=== PATIENT | male | born 1985 | race Two or more races ===

== ENCOUNTER → 2024-09-18 | Outpatient (CLI) | payer OTHER, SELFPAY ==
[2024-09-18 17:11] LABS: Free T3 5.5 pg/mL (2.3-4.2); Free T4 (Free Thyroxine) 0.86 ng/dL (0.89-1.76)
[2024-09-30 06:44] LABS: DHEA Sulfate* 469 mcg/dL (70-495); T3, Reverse, LC/MS/MS* 13 ng/dL (8-25); Testosterone, Free,Dialysis 237.2 pg/mL (35.0-155.0); Testosterone, Total, Dialysis 1202 ng/dL (250-1100)
== END | disposition home or self-care (01) ==
LOC: COPL 15:45
PROVIDERS: PCP Family Medicine; Referring Provider Family Medicine; Visit Provider Family Medicine
DX: E03.9 Hypothyroidism, unspecified (principal); E29.1 Testicular hypofunction
CPT/HCPCS: 36415; 82627; 84402; 84403; 84439; 84481; 84482

== ENCOUNTER → 2024-10-13 | Outpatient (CLI) | payer OTHER, SELFPAY ==
--- NOTE | 2024-10-13 13:50 | XR_ITS ---
Examination: PA lateral chest 2 views TECHNIQUE: Upright PA lateral chest 2 views Exam date and time: October 13, 2024 1410 hours INDICATIONS: Shortness of breath wheezing beginning several months ago. FINDINGS: Normal heart size Lungs are clear. The osseous structures are intact IMPRESSION: No active disease
== END | disposition home or self-care (01) ==
PROVIDERS: PCP Family Medicine; Referring Provider Family Medicine; Visit Provider Family Medicine
DX: R06.02 Shortness of breath (principal); R06.2 Wheezing
CPT/HCPCS: 71046

== ENCOUNTER 2024-12-04 19:39 | Emergency (ER) | payer OTHER, SELFPAY ==
[2024-12-04 19:40] VITALS: BMI 32.6
[2024-12-04 21:02] VITALS: BP 163/89; PULSE 96; RESP 18; TEMP 36.8; O2SAT 95
[2024-12-04] MEDS: DEXAMETHASONE SOD PHOS INJ 10 MG/ML VIAL PO (21:34)
[2024-12-04 23:32] VITALS: BP 112/67; PULSE 87; RESP 18; TEMP 37.3; O2SAT 99
--- NOTE | 2024-12-05 04:18 | EDNOTE_ITS ---
Upper Respiratory Inf. RME/HPI General Chief Complaint: Dental/Oral/Throat Stated Complaint: Feels swelling in throat and tongue x 3 weeks Time Seen by Provider: 12/04/24 21:17 Arrival date/time: 12/04/24 19:39 39M with history of rosacea presents to ED for several weeks of facial numbness, as well as swelling in throat and tongue, that is worse at night. This has been happening intermittently for the past few years, but worse recently. Patient also works underground doing construction. Limitations: no limitations Related Data Home Medications ?Medication ?Instructions ?Recorded ?Confirmed No Known Home Medications 06/03/1910/21 Allergies Allergy/AdvReac Type Severity Reaction Status Date / Time No Known Allergies Allergy Verified 06/11/19 21:15 Review of Systems Review of Systems Systems Reviewed: All systems reviewed, normal except as documented Constitutional Constitutional: Reports system reviewed and no additional complaints, except as documented, Denies fever(s) and Denies headache(s) ENT Ears, Nose, Mouth, and Throat: Reports as per HPI, Denies disequilibrium, Denies headache(s) and Reports throat swelling Cardiovascular Cardiovascular: Reports system reviewed and no additional complaints, except as documented, Denies chest pain and Denies dyspnea Respiratory Respiratory: Reports system reviewed and no additional complaints, except as documented, Denies cough and Denies dyspnea Gastrointestinal Gastrointestinal: Reports system reviewed and no additional complaints, except as documented, Denies abdominal pain, Denies nausea and Denies vomiting Musculoskeletal Musculoskeletal: Reports numbness Neurologic Neurologic: Reports system reviewed and no additional complaints, except as documented, Reports as per HPI, Denies confusion, Denies disequilibrium, Denies headache(s) and Reports numbness Psychiatric Psychiatric: Denies confusion Allergic/Immunologic Allergic/Immunologic: Reports throat swelling Past Medical History Past Medical History CARDIAC: Negative Congestive Heart Failure RESPIRATORY: Negative Chronic Obstructive Pulmonary Disease (COPD) GENITOURINARY: Negative Renal Disease ENDOCRINE: Negative Diabetes Mellitus Type 1 or Diabetes Mellitus Type 2 OTHER HISTORY: Negative Organ Transplant Surgical History SURGICAL: Negative Organ Transplant Social History SMOKING STATUS: Never smoker ED Exam General Limitations: Present no limitations General appearance: Present alert and in no apparent distress Head Head exam: Present atraumatic Eye Eye exam: Present normal appearance, PERRL and EOMI ENT ENT exam: Present normal exam, normal oropharynx and mucous membranes moist Neck Neck exam: Present normal inspection, full ROM and trachea midline Chest Chest inspection: Present normal inspection and symmetric chest wall rise Respiratory Respiratory exam: Present normal lung sounds bilaterally Cardiovascular Cardiovascular exam: Present regular rate, normal rhythm and normal heart sounds Abdominal Exam Abdominal exam: Present soft and normal bowel sounds Extremities Exam Extremities exam: Present normal inspection and full ROM Back Exam Back exam: Present normal inspection and full ROM Neurological Exam Neurological exam: Present alert, oriented X3 and CN II-XII intact Psychiatric Psychiatric exam: Present normal affect and normal mood Skin Skin exam: Present warm, dry, intact, normal color and rash (facial rosacea) Course Quality Measures none Orders Category Date Time Status Dexamethasone Inj [Decadron Inj] Med 12/04/24 21:17 Discontinued 10 mg PO X1 ONE Vital Signs Vital signs: Vital Signs Temperature 98.3 F 12/04/24 21:02 Pulse Rate 96 12/04/24 21:02 Respiratory Rate 18 12/04/24 21:02 Blood Pressure 163/89 H 12/04/24 21:02 Pulse Oximetry (%) 95 12/04/24 21:02 O2 at 95% on RA and WNLs Upper Respiratory Infection MDM Narrative MDM Narrative:: 39M with history of rosacea presents to ED for several weeks of facial numbness, as well as swelling in throat and tongue, that is worse at night. This has been happening intermittently for the past few years, but worse recently. Patient also works underground doing construction. Physical exam reveals normal pupil response and EOM. ENT and lungs clear. No sinus tenderness. CN II-XII grossly intact. Gait normal. Patient is afebrile, calm, and alert. Steroids improved symptoms. Likely chronic pharyngitis/nasosinusitis likely related to pro-inflammatory state as evidenced by rosacea; can also be worsened by environmental factors such as his work areas. Patient has seen ENT and was told he has thickened swelling in those areas. Director Of Education And Training given. Patient data External records reviewed:: [facility] previous records Clinical information provided by:: patient Social determinants that could affect healthcare access:: none Patient has the following chronic illnesses:: rosacea How is presenting disease/condition affected by chronic disease/condition?: exacerbated by Evaluation data The following diagnostics were reviewed and interpreted by me:: other (specify) (none) Lab and/or radiology exams considered but not ordered:: not ordered Interpretation Summary: n/a Medications / Prescriptions Medications or Prescriptions considered but not ordered:: ordered Medication administrations:: Medication Administration History Discontinued Medications Dexamethasone Sodium Phosphate (Dexamethasone Sod Phos Inj 10 Mg/Ml Vial) 10 mg PO X1 ONE Stop: 12/04/24 21:18 Last Admin: 12/04/24 21:34 Dose: 10 mg Documented By: above Consultations Consultation(s) initiated? (list below): No Diagnosis Upper Respiratory Differential Diagnosis: upper respiratory infection, croup, otitis media, sinusitis, viral infection, bronchitis, influenza, pharyngitis and other (chronic sinusitis/nasopharyngitis) Most likely diagnosis given after review of the tests above:: chronic sinusitis/nasopharyngitis Admission Indicated Admission indicated?: not indicated Admission Request Was there a request for admission?: No Disposition Plan Disposition Plan: Discharge Discharge Attestation Discharge Attestation: The patient and all family members were given an opportunity to ask questions and understood the discharge instructions. Discharge instructions specifically effects, indications for sooner follow up or return to the emergency department, and the expected course of current diagnosis. Patient condition: Stable Discharge Plan Plan Patient Disposition: HOME (Self Care) Disposition Comment: Stable Prescriptions/Referrals Prescriptions/Med Rec: No Action No Known Home Medications Referrals: Sukhjinder Freire DO [Primary Care Provider] - In 1 week Problem List Clinical Impression: Chronic sinusitis, Chronic pharyngitis and nasopharyngitis Patient/Caregiver Discharge Instructions Education Materials: Chronic Sinusitis Additional Instructions: Please follow-up with PCP within 24-48 hours and return immediately if symptoms worsen. Follow-up with PCP for additional evaluation and/or referrals. Print Language: Serbian Stand Alone Forms: Patient Portal Info Letter FREYA/ARVIN Supervising Physician FREYA/ARVIN Supervising Physician: Dr. Day
== END 2024-12-04 23:33 | disposition home or self-care (01) ==
PROVIDERS: Emergency Provider Emergency Medicine; PCP Family Medicine
DX: J00 Acute nasopharyngitis [common cold] (principal); J32.9 Chronic sinusitis, unspecified; J31.2 Chronic pharyngitis
CPT/HCPCS: 99282; J1100

== ENCOUNTER 2024-12-06 23:31 | Emergency (ER) | payer OTHER, SELFPAY ==
[2024-12-06 23:32] VITALS: BMI 31.9
[2024-12-06 23:52] VITALS: BP 161/110; PULSE 75; RESP 17; TEMP 36.8; O2SAT 97
--- NOTE | 2024-12-07 00:10 | PD.EDDENTL ---
ED Dental RME/HPI General Chief complaint: Dental/Oral/Throat Stated complaint: TONSIL SWELLING Time Seen by Provider: 12/06/24 23:35 Arrival date/time: 12/06/24 23:31 Mode of arrival: ambulatory Limitations: no limitations RME / HPI RME / HPI Narrative: 39-year-old male with past medical history of chronic pharyngitis presents for evaluation of tonsillar swelling x 3 days. Patient was seen in the ED x 3 days ago and diagnosed with pharyngitis and given p.o. steroids. Patient reports temporary improvement in his symptoms but states that his throat pain has been worsening over the last x 1 day. Patient endorses increased drooling and nasal discharge. Denies shortness of breath, tongue swelling, ear pain, cough, chest pain, fever, chills neck pain. He notes chronic facial tension which is worse whenever he experiences tonsillar swelling. Denies known sick contacts. Patient reports that he has an ENT appointment for allergy testing this week and was advised not to take antihistamines. Related Data Previous Rx's ?Medication ?Instructions ?Recorded methylprednisolone 4 mg tablets in 4 mg PO QDAY #21 tabs 12/07/24 a dose pack (Medrol (Miky)) clindamycin HCl 300 mg capsule 300 mg PO Q6H 7 days #28 caps 12/14/24 prednisone 50 mg tablet 50 mg PO QDAY #7 tabs 12/14/24 Allergies Allergy/AdvReac Type Severity Reaction Status Date / Time No Known Allergies Allergy Verified 12/13/24 22:54 Review of Systems Constitutional Constitutional: Denies chills, Denies excessive sweating, Denies fatigue, Denies fever(s), Denies headache(s), Denies stops breathing during sleep and Denies weakness Eyes Eyes: Denies blurry vision and Denies change in vision ENT Ears, Nose, Mouth, and Throat: Reports change in voice (reports hoarseness. ), Denies dizziness, Denies dysphagia, Denies ear discharge, Denies otalgia, Denies facial pain, Denies headache(s), Denies lip swelling, Denies neck pain, Reports odynophagia, Reports post nasal drip, Reports sore throat, Reports throat swelling, Denies tongue swelling and Denies vertigo Cardiovascular Cardiovascular: Denies chest pain, Denies dyspnea, Denies edema, Denies irregular heart rhythm and Denies leg edema Respiratory Respiratory: Denies change in phlegm color, Denies cough, Denies dyspnea, Denies hemoptysis, Denies stridor and Denies wheezing Gastrointestinal Gastrointestinal: Denies change in stool character, Denies dysphagia, Denies nausea, Reports odynophagia and Denies vomiting Musculoskeletal Musculoskeletal: Denies back pain, Denies myalgias, Denies neck pain, Denies numbness, Denies stiffness and Denies tingling Integumentary/Breasts Skin/Breast: Denies lesions, Denies new lesions and Denies rash Neurologic Neurologic: Denies convulsions, Denies dizziness, Denies headache(s), Denies numbness, Denies tingling, Denies vertigo and Denies weakness Endocrine Endocrine: Denies excessive sweating and Denies fatigue Hematologic/Lymphatic Hematologic/Lymphatic: Denies lymphadenopathy Allergic/Immunologic Allergic/Immunologic: Denies lip swelling, Reports throat swelling, Denies tongue swelling and Denies wheezing Past Medical History Past Medical History CARDIAC: Negative Cardiac Disorders or Congestive Heart Failure RESPIRATORY: Negative Chronic Obstructive Pulmonary Disease (COPD) or Asthma GENITOURINARY: Negative Renal Disease ENDOCRINE: Negative Diabetes Mellitus Type 1 or Diabetes Mellitus Type 2 HEMATOLOGIC: Negative Sickle Cell Disease OTHER HISTORY: Negative Organ Transplant Surgical History SURGICAL: Negative Organ Transplant Social History SMOKING STATUS: Never smoker ED Exam General Limitations: Present no limitations General appearance: Present alert and in no apparent distress Head Head exam: Present atraumatic and normocephalic Eye Eye exam: Present normal appearance and EOMI ENT ENT exam: Present mucous membranes moist and TM's normal bilaterally Expanded ENT Exam Mouth exam: Present tongue normal; Absent drooling, trismus or lip swelling Throat exam: Present tonsillar erythema (pharyngeal erythema without exudate. ) and tonsillomegaly (bilateral. ); Absent tonsillar exudate, R peritonsillar mass, L peritonsillar mass or muffled voice Neck Neck exam: Present normal inspection, full ROM and trachea midline; Absent tenderness, meningismus or lymphadenopathy Chest Chest inspection: Present normal inspection and symmetric chest wall rise Respiratory Respiratory exam: Present normal lung sounds bilaterally; Absent respiratory distress, wheezes, stridor or accessory muscle use Cardiovascular Cardiovascular exam: Present regular rate and +S1 Abdominal Exam Abdominal exam: Present soft; Absent distention or tenderness Extremities Exam Extremities exam: Present normal inspection and full ROM Back Exam Back exam: Present normal inspection and full ROM Neurological Exam Neurological exam: Present alert and normal gait Psychiatric Psychiatric exam: Present normal affect Skin Skin exam: Present warm, dry, intact and normal color Course Quality Measures none Orders Category Date Time Status Bedside COVID-19 Antigen Test NOW Care 12/07/24 00:02 Completed Bedside Influenza A&B Antigen Test NOW [facility] 12/07/24 00:02 Completed [facility] Screen Stat Lab 12/07/24 00:31 Completed Strep A Rapid Stat Lab 12/07/24 00:07 Completed Dexamethasone Inj [Decadron Inj] Med 12/07/24 00:02 Discontinued 10 mg IM X1 ONE Ketorolac Inj [Toradol Inj] Med 12/07/24 00:02 Discontinued 30 mg IM X1 ONE Vital Signs Vital signs: Vital Signs Temperature 98.2 F 12/06/24 23:52 Pulse Rate 75 12/06/24 23:52 Respiratory Rate 17 12/06/24 23:52 Blood Pressure 161/110 H 12/06/24 23:52 Pulse Oximetry (%) 97 12/06/24 23:52 Oxygen Delivery Method Room Air 12/06/24 23:52 Ox 97% on room air, within normal limits. Dental / Oral MDM Narrative MDM Narrative:: 39-year-old male with reported chronic pharyngitis presents with throat pain. Patient was seen in the department several days ago and given oral steroids with reported improvement in his symptoms. Patient nontoxic-appearing without evidence of acute airway compromise. Physical exam significant for tonsillomegaly bilaterally without touching and no exudate. Strep and mono screen today were negative. COVID and flu swabs were negative. Given patient is afebrile and reports chronic nature of symptoms less concern for abscess at this time. Antibiotics held at this time given clinical presentation. Patient's symptoms were improved following NSAIDs and steroid in the department. Ultimately he was discharged with plan for close follow-up wit ENT and x 2 days. Return precautions were provided. I prescribed him a Medrol Dosepak which I advised him to take if his symptoms do not improve in the next several days. I advised him to continue taking Pepcid after he is cleared to do so by ENT. Patient stable at time of discharge. Patient data External records reviewed:: [facility] previous records Clinical information provided by:: patient Social determinants that could affect healthcare access:: none Patient has the following chronic illnesses:: Patient reports chronic hypertrophy. How is presenting disease/condition affected by chronic disease/condition?: exacerbated by Evaluation data The following diagnostics were reviewed and interpreted by me:: lab results Lab and/or radiology exams considered but not ordered:: Considered not ordered. Interpretation Summary: COVID, flu, strep, mono negative today. Imaging considered not ordered. Blood work considered not ordered. Medications / Prescriptions Medications or Prescriptions considered but not ordered:: Rx given. Medication administrations:: Medication Administration History Discontinued Medications Dexamethasone Sodium Phosphate (Dexamethasone Sod Phos Inj 10 Mg/Ml Vial) 10 mg IM X1 ONE Stop: 12/07/24 00:03 Last Admin: 12/07/24 00:45 Dose: 10 mg Documented By: DAT Ketorolac Tromethamine (Ketorolac Inj 60 Mg/2 Ml Vial) 30 mg IM X1 ONE Stop: 12/07/24 00:03 Last Admin: 12/07/24 00:44 Dose: 30 mg Documented By: DAT Rx given. Consultations Consultation(s) initiated? (list below): No Diagnosis Dental Differential Diagnosis: other (Pharyngeal mass, peritonsillar abscess, Ludewig's angina, mono, bacterial tonsillitis, viral tonsillitis, GERD, seasonal allergies.) Most likely diagnosis given after review of the tests above:: Chronic pharyngitis. Admission Indicated Admission indicated?: not indicated Explain why admission is indicated or not indicated:: Patient airway patent, nontoxic-appearing with stable vital signs. Plan for close outpatient follow-up with primary care. Admission Request Was there a request for admission?: No Disposition Plan Disposition Plan: Discharge Discharge Attestation Discharge Attestation: The patient and all family members were given an opportunity to ask questions and understood the discharge instructions. Discharge instructions specifically effects, indications for sooner follow up or return to the emergency department, and the expected course of current diagnosis. Patient condition: Stable Discharge Plan Plan Patient Disposition: HOME (Self Care) Disposition Comment: stable Prescriptions/Referrals Prescriptions/Med Rec: New methylprednisolone [Medrol (Miky)] 4 mg tablets,dose pack 4 mg PO QDAY Qty: 21 0RF No Action prednisone 50 mg tablet 50 mg PO QDAY Qty: 7 0RF clindamycin HCl 300 mg capsule 300 mg PO Q6H 7 Days Qty: 28 0RF Referrals: Sukhjinder Freire DO [Primary Care Provider] - In 1 week Problem List Clinical Impression: Chronic pharyngitis and nasopharyngitis Impression comment: Follow-up with primary care tomorrow as planned. Start Medrol dose pack tomorrow if your symptoms persist. Follow-up with ENT for allergy testing as planned. Start Pepcid and PPI as prescribed when cleared by ENT. Return to the ED if your symptoms worsen or change. Patient/Caregiver Discharge Instructions Education Materials: ED Pharyngitis, Report Pending Print Language: Luxembourger Stand Alone Forms: Tashia Award Info., Patient Portal Info Letter PA/DATA PROCESSING CONTROL CLERK Supervising Physician PA/DATA PROCESSING CONTROL CLERK Supervising Physician: Dr. Moore
[2024-12-07] MEDS: KETOROLAC INJ 60 MG/2 ML VIAL 30 MG IM (00:44)
[2024-12-07] MEDS: DEXAMETHASONE SOD PHOS INJ 10 MG/ML VIAL IM (00:45)
[2024-12-07 01:42] LABS: Strep A Rapid Negative (Negative)
[2024-12-07 01:43] VITALS: BP 154/88; PULSE 72; RESP 17; TEMP 36.6; O2SAT 97
[2024-12-07 09:37] LABS: Mono Screen Negative (Negative)
== END 2024-12-07 01:52 | disposition home or self-care (01) ==
PROVIDERS: Physician Assistant; Emergency Provider Emergency Medicine; PCP Family Medicine
DX: J31.2 Chronic pharyngitis (principal); J00 Acute nasopharyngitis [common cold]
CPT/HCPCS: 36415; 86308; 87400; 87651; 87811; 96372; 99283; J1100; J1885

== ENCOUNTER 2024-12-13 22:52 | Emergency (ER) | payer OTHER, SELFPAY ==
[2024-12-13 22:55] VITALS: BMI 32.6
[2024-12-13 23:17] VITALS: BP 166/91; PULSE 71; RESP 20; TEMP 36.7; O2SAT 95
--- NOTE | 2024-12-13 23:27 | XR_ITS ---
Examination: CT soft tissue neck, with intravenous contrast. 2-D coronal reconstructions. 2-D sagittal reconstructions. Date and time of exam :December 14, 2024 0118 hrs. Indications: Throat pain difficulty swallowing today. CTDI: vol (mGy):14.1 DLP: (mGycm):342 Technique: 1.25 mm axial sections of the neck of the obtained. Coronal and sagittal reconstructions have been obtained. Intravenous contrast administered 50 cc Isovue-370. Low dose protocols were performed. One or more of the following dose reduction techniques were used; automated exposure control, adjustment of the mA and/or KV according to patient size, use of iterative reconstruction technique. Findings: Mild soft tissue tonsillar swelling No tonsillar abscess No opaque foreign body No pathologic cervical lymphadenopathy The larynx appears normal Minimal narrowing of the subglottic region Impression: Mild soft tissue tonsillar swelling No tonsillar soft tissue abscess
--- NOTE | 2024-12-13 23:27 | PD.EDRME ---
Rapid Medical Screening Exam RME Arrival date/time: 12/13/24 22:52 39 yo m present to ED for swelling tonsil. ongoing for 1 week I have greeted and performed a focused initial assessment of this patient. A comprehensive ED assessment and evaluation of the patient, analysis of all test results, and completion of the medical decision making process will be conducted by additional ED providers. Chief Complaint: Dental/Oral/Throat Time Seen by Provider: 12/13/24 22:55 Vital signs: Vital Signs Temperature 98.1 F 12/13/24 23:17 Pulse Rate 71 12/13/24 23:17 Respiratory Rate 20 12/13/24 23:17 Blood Pressure 166/91 H 12/13/24 23:17 Pulse Oximetry (%) 95 12/13/24 23:17 Oxygen Delivery Method Room Air 12/13/24 23:17
[2024-12-14] MEDS: KETOROLAC INJ 30 MG/ML VIAL IVP (00:06)
[2024-12-14 00:07] VITALS: BP 148/89; PULSE 67; RESP 16; TEMP 36.7; O2SAT 95
[2024-12-14 00:11] LABS: Basophils # (Auto) 0.1 Thou/mm3 (0.0-0.2); Basophils % (Auto) 1 % (0-2.5); Eosinophils # (Auto) 0.1 Thou/mm3 (0.0-0.5); Eosinophils % (Auto) 1 % (0-10); Hematocrit 56.6 % (41.0-53.0); Hemoglobin 18.9 g/dL (13.5-16.0); Immature Granulocytes % (Auto) 1 % (0-0); Lymphocytes # (Auto) 3.1 Thou/mm3 (1.0-4.8); Lymphocytes % (Auto) 34 % (10-50); Mean Corpuscular HGB Conc 33.4 g/dl (31.0-37.0); Mean Corpuscular Hemoglobin 30.2 pg (25.0-35.0); Mean Corpuscular Volume 91 fL (80-100); Monocytes # (Auto) 0.9 Thou/mm3 (0.0-0.8); Monocytes % (Auto) 9 % (0-12); Neutrophils # (Auto) 4.9 Thou/mm3 (1.8-7.7); Neutrophils % (Auto) 54 % (37-80); Nucleated Red Blood Cell % 0 /100 WBC (0); Platelet Count 177 Thou/mm3 (140-440); RDW Standard Deviation 43.8 fL (35.1-43.9); Red Blood Count 6.25 Miln/mm3 (4.50-5.90); White Blood Count 9.1 Thou/mm3 (3.8-10.6)
[2024-12-14 00:49] LABS: Alanine Aminotransferase 20 U/L (10-49); Albumin/Globulin Ratio 1.6 (1.2-2.2); Alkaline Phosphatase 87 U/L (46-116); Anion Gap 7 (7-16); Aspartate Amino Transferase 25 U/L (0-34); BUN/Creatinine Ratio 13 Ratio (12-20); Bilirubin,Total 0.5 mg/dL (0.3-1.2); Blood Urea Nitrogen 12 mg/dL (9-23); Calcium 8.4 mg/dL (8.3-10.6); Calcium (Corrected) 8.4 mg/dL (8.5-10.1); Carbon Dioxide 25.8 mMol/L (20.0-31.0); Chloride 108 mMol/L (98-107); Creatinine (Component) 0.9 mg/dL (0.6-1.3); Estimated Creatinine Clearance 122.3 mL/min (>60); Globulin 2.5 gm/dL (2.3-3.5); Glucose 91 mg/dL (74-106); Osmolality,Calculated 280 (275-295); Potassium 4.3 mMol/L (3.4-5.1); Sodium 141 mMol/L (136-145); Total Protein 6.5 gm/dL (5.7-8.2); eGFR > 60 See Note
[2024-12-14 02:00] VITALS: BP 120/78; PULSE 62; RESP 16; TEMP 36.6; O2SAT 98
--- NOTE | 2024-12-14 03:09 | EDNOTE_ITS ---
ED Dental RME/HPI General Chief complaint: Dental/Oral/Throat Stated complaint: throat pain and swelling Time Seen by Provider: 12/13/24 22:55 Arrival date/time: 12/13/24 22:52 Limitations: no limitations RME / HPI RME / HPI Narrative: 12/13/24 22:52 39 yo m present to ED for swelling tonsil. ongoing for 1 week I have greeted and performed a focused initial assessment of this patient. A comprehensive ED assessment and evaluation of the patient, analysis of all test results, and completion of the medical decision making process will be conducted by additional ED providers. HPI: 39-year-old male with history of multiple years of tonsillitis being treated as a child, presenting to the emergency department by car with 1 to 2 months of intermittent difficulty breathing secondary to tonsils being enlarged. The patient comes tonight because he felt like his tonsils were swollen similar to when he has had tonsillitis in the past. Patient states that he has seen ENT in the past and he is waiting to see if they want to take his tonsils out. He was seen here in emergency department on December 05 and then on December 07 for similar complaints. He states that he is finished a 5-day course of Augmentin. LOCATION: Bilateral tonsillar swelling SEVERITY: Symptoms are described as being severe with limitations on activities of daily sleeping at night. QUALITY: Symptoms are described as being dull CONTEXT: The patient is unable to identify any inciting events. No trauma DURATION/TIMING: The symptoms started approximately 1 week and intermittently worse ASSOCIATED SYMPTOMS: The patient is unable to identify any other associated symptoms. No hoarseness. MODIFYING FACTORS: The patient is unable to identify any alleviating or aggravating symptoms. PERTINENT ROS: No hoarseness, fever, foreign body sensation., Related Data Previous Rx's ?Medication ?Instructions ?Recorded methylprednisolone 4 mg tablets in 4 mg PO QDAY #21 ta bs 12/07/24 a dose pack (Medrol (Miky)) clindamycin HCl 300 mg capsule 300 mg PO Q6H 7 days #2 8 caps 12/14/24 prednisone 50 mg tablet 50 mg PO QDAY #7 tabs Allergies Allergy/AdvReac Type Severity Reaction Status Date / Time No Known Allergies Allergy Verified 12/13/24 22:54 Review of Systems Review of Systems Systems Reviewed: All systems reviewed, normal except as documented Past Medical History Past Medical History CARDIAC: Negative Cardiac Disorders or Congestive Heart Failure RESPIRATORY: Negative Chronic Obstructive Pulmonary Disease (COPD) or Asthma GENITOURINARY: Negative Renal Disease ENDOCRINE: Negative Diabetes Mellitus Type 1 or Diabetes Mellitus Type 2 HEMATOLOGIC: Negative Sickle Cell Disease OTHER HISTORY: Negative Organ Transplant Surgical History SURGICAL: Negative Organ Transplant Social History SMOKING STATUS: Never smoker ED Exam Narrative Physical exam: Patient does not appear in acute distress. No hoarseness or stridor. General Limitations: Present no limitations General appearance: Present alert and in no apparent distress Head Head exam: Present atraumatic Eye Eye exam: Present normal appearance ENT ENT exam: Present normal exam, normal oropharynx and mucous membranes moist Neck Neck exam: Present normal inspection, full ROM and trachea midline (No obvious throat swelling on palpation.) Chest Chest inspection: Present normal inspection and symmetric chest wall rise Respiratory Respiratory exam: Present normal lung sounds bilaterally Cardiovascular Cardiovascular exam: Present regular rate, normal rhythm and normal heart sounds Abdominal Exam Abdominal exam: Present soft and normal bowel sounds Extremities Exam Extremities exam: Present normal inspection and full ROM Back Exam Back exam: Present normal inspection and full ROM Neurological Exam Neurological exam: Present alert and oriented X3 Psychiatric Psychiatric exam: Present normal affect and normal mood Skin Skin exam: Present warm, dry, intact and normal color Course Course Course Narrative: Patient seen in MRI mean CT is ordered. Quality Measures none Orders Category Date Time Status CT Screening NOW Care 12/13/24 23:27 Completed Insert IV STAT Care 12/13/24 23:[address] soft tissue neck w con Stat Exams 12/13/24 23:27 Taken CBC Stat Lab 12/13/24 23:39 Completed CMP [Comprehensive Metabolic Panel] Stat Lab 12/13/24 23:39 Completed Clindamycin [Cleocin] Med 12/14/24 03:21 Discontinued 300 mg PO X1 ONE Ketorolac Inj [Toradol Inj] Med 12/13/24 23:58 Discontinued 30 mg IVP X1 ONE Reevaluation(s) Reevaluation #1: Patient sitting in room 17. On reevaluation after meds patient has no hoarseness. He is feeling better. No snoring. Vital Signs Vital signs: Vital Signs Temperature 98.1 F 12/13/24 23:17 Pulse Rate 71 12/13/24 23:17 Respiratory Rate 20 12/13/24 23:17 Blood Pressure 166/91 H 12/13/24 23:17 Pulse Oximetry (%) 95 12/13/24 23:17 Oxygen Delivery Method Room Air 12/13/24 23:17 Dental / Oral MDM Narrative MDM Narrative:: Differential diagnosis includes acute on chronic tonsillitis, mass, lymphadenopathy, viral syndrome, bacterial infection. 39-year-old male with history of tonsillitis presents emergency department with recurrent tonsillitis. The patient otherwise appears nontoxic. He is afebrile here in the emergency department with stable vitals. ED course The patient was worked up and CBC C shows normal white count CT scan does show some adenotonsillitis. The patient is treated with Decadron, and oral clindamycin. Dexamethasone was given and the patient symptoms have significantly improved. Reexam On repeat exam the patient is not having stridor. Plan The patient has a primary care appointment and ENT follow-up today over the phone. He is told that he should probably continue wearing his CPAP as directed by his primary care physician. Return precautions are given and understood. Patient data External records reviewed:: [facility] previous records (Patient seen previously in the ER approximately 1 week ago.) Clinical information provided by:: patient Social determinants that could affect healthcare access:: none Patient has the following chronic illnesses:: History of chronic sinusitis and chronic tonsillitis How is presenting disease/condition affected by chronic disease/condition?: exacerbated by Evaluation data The following diagnostics were reviewed and interpreted by me:: lab results and radiology exam(s) Lab and/or radiology exams considered but not ordered:: None Interpretation Summary: Labs: While the emergency department the patient has a white count that is 9.1. This is normal. Hemoglobin is 18 which is slightly elevated. Platelets are normal. Otherwise electrolytes are essentially normal except for chloride of 108. CT Scan Soft Tissue Clinical History: Swelling tonsil, difficulty swallowing Comparison: None. Findings: The adenoids and tonsils are prominent producing mild narrowing of the nasopharyngeal and oropharyngeal airway. No evidence of loculated abscess is seen. The hypopharynx, supraglottic and infraglottic larynx and upper trachea are unremarkable. The epiglottis and aryepiglottic folds appear unremarkable. No enhancing lesion or fluid collection is identified. The parotid and submandibular glands are unremarkable. The vessels of the neck are well opacified. No filling defect is seen. The superficial soft tissues of the neck are unremarkable. Mild degenerative changes are identified in the spine. Impression: 1. Findings suggestive of mild adenotonsillitis. No evidence of loculated abscess. 2. Mild narrowing of the nasopharyngeal and oropharyngeal airway. 3. Other findings as described above. Medications / Prescriptions Medications or Prescriptions considered but not ordered:: None Medication administrations:: Medication Administration History Discontinued Medications Clindamycin HCl (Clindamycin 150 Mg Capsule) 300 mg PO X1 ONE Stop: 12/14/24 03:22 Last Admin: 12/14/24 03:27 Dose: 300 mg Documented By: BD Ketorolac Tromethamine (Ketorolac Inj 30 Mg/Ml Vial) 30 mg IVP X1 ONE Stop: 12/13/24 23:59 Last Admin: 12/14/24 00:06 Dose: 30 mg Documented By: BD As above Consultations Consultation(s) initiated? (list below): No Diagnosis Dental Differential Diagnosis: other (See MDM) Most likely diagnosis given after review of the tests above:: Tonsillitis, Admission Indicated Admission indicated?: not indicated Explain why admission is indicated or not indicated:: Patient is tolerating p.o. No evidence of HEENT emergency. Admission Request Was there a request for admission?: No Disposition Plan Disposition Plan: Discharge Discharge Attestation Discharge Attestation: The patient and all family members were given an opportunity to ask questions and understood the discharge instructions. Discharge instructions specifically effects, indications for sooner follow up or return to the emergency department, and the expected course of current diagnosis. Patient condition: Stable Discharge Plan Plan Patient Disposition: HOME (Self Care) Patient condition on transfer: Stable Prescriptions/Referrals Prescriptions/Med Rec: New prednisone 50 mg tablet 50 mg PO QDAY Qty: 7 0RF clindamycin HCl 300 mg capsule 300 mg PO Q6H 7 Days Qty: 28 0RF No Action methylprednisolone [Medrol (Miky)] 4 mg tablets,dose pack 4 mg PO QDAY Qty: 21 0RF Referrals: [facility] [Outside] - In 1 week (Please follow-up with your ENT specialist that you already have scheduled tomorrow. Please return to the emergency department for worsening symptoms, or any other concerns. If you do not have a primary care physician you can follow-up with the [facility].) No Primary/Family,Physician [Primary Care Provider] - In 1 week Problem List Clinical Impression: Adenotonsillar hypertrophy, Acute bacterial tonsillitis Patient/Caregiver Discharge Instructions Education Materials: Tonsillitis in Adults Additional Instructions: General Adult Discharge Instructions DISCHARGE INSTRUCTIONS Even though you have been discharged from the Emergency Department, there are several things that you should do to ensure that you receive proper care: 1. DO READ your discharge instructions as these contain important information concerning your medical care. 2. If medication has been prescribed for your condition, fill the prescription as soon as possible and follow the directions on the medication. 3. RETURN AT ONCE TO THE EMERGENCY DEPARTMENT if you have any problems or concerns. These include but are not limited to fever, worsening pain(belly, chest, head, etc?), worsening shortness of breath, uncontrollable bleeding, inability to tolerate food and water, or any condition that makes you question your well-being. Also, if your symptoms do not improve in the next 12-24 hours, return to the ER or seek medical care immediately. 4. Be sure to follow up with your regular physician or specialist as instructed at discharge as this is the best way to ensure that you receive the very best of care. If you do not have a primary care physician, please contact a physician group and make an appointment. 5. Please visit [employer] for coupons regarding your prescriptions. It is a free service for you to use and can help reduce the cost of your medication. We would like to thank you for coming today and our hope is that we served you and your family well during your stay Print Language: Persian Stand Alone Forms: [employer] Award Info., Work/School Release, Patient Portal Info Letter
--- NOTE | 2024-12-14 03:09 | PRELIM_ITS ---
CT scan of the neck with intravenous contrast (axial sections with sagittal and coronal reformats) December 14, 2024 0118 hours Clinical History: Swelling tonsil, difficulty swallowing Comparison: None. Findings: The adenoids and tonsils are prominent producing mild narrowing of the nasopharyngeal and oropharyngeal airway. No evidence of loculated abscess is seen. The hypopharynx, supraglottic and infraglottic larynx and upper trachea are unremarkable. The epiglottis and aryepiglottic folds appear unremarkable. No enhancing lesion or fluid collection is identified. The parotid and submandibular glands are unremarkable. The vessels of the neck are well opacified. No filling defect is seen. The superficial soft tissues of the neck are unremarkable. Mild degenerative changes are identified in the spine. Impression: 1. Findings suggestive of mild adenotonsillitis. No evidence of loculated abscess. 2. Mild narrowing of the nasopharyngeal and oropharyngeal airway. 3. Other findings as described above. Suggest clinical correlation and follow up accordingly. Report Electronically Signed By: Darwin Dc 12/14/2024 3:08:58 AM [EST]
[2024-12-14] MEDS: CLINDAMYCIN 150 MG CAPSULE 300 MG PO (03:27)
[2024-12-14 03:29] VITALS: BP 144/99; PULSE 73; RESP 16; TEMP 37.2; O2SAT 97
== END 2024-12-14 03:39 | disposition home or self-care (01) ==
PROVIDERS: Physician Assistant; Emergency Provider Emergency Medicine
DX: J03.91 Acute recurrent tonsillitis, unspecified (principal); J35.03 Chronic tonsillitis and adenoiditis
CPT/HCPCS: 36415; 70491; 80053; 85025; 96374; 99285; A4649; J1885; Q9967; A9270

== ENCOUNTER 2024-12-31 01:24 | Emergency (ER) | payer OTHER, SELFPAY ==
[2024-12-31 01:25] VITALS: BMI 32.6
[2024-12-31 01:35] VITALS: BP 148/92; PULSE 84; RESP 18; TEMP 36.8; O2SAT 97
[2024-12-31] MEDS: dexAMETHasone 4 MG TABLET 10 MG PO (02:18)
--- NOTE | 2024-12-31 03:25 | PD.EDURI ---
Upper Respiratory Inf. RME/HPI General Chief Complaint: Dental/Oral/Throat Stated Complaint: THROAT FEELS SWOLLEN Time Seen by Provider: 12/31/24 01:53 Arrival date/time: 12/31/24 01:24 39M with history of rosacea presents to ED for 2 days of throat swelling that is worse at night. This has been happening intermittently for the past few years, but worse recently. Patient also works underground doing construction. Patient has pending ENT referral and was here multiples times recently for this. [address] of neck, which just showed mild tonsillitis. Patient was discharged with steroids and ABX, and patient states steroids were effective, but ABX were not. Physical exam reveals normal pupil response and EOM. ENT and lungs clear. No sinus tenderness. CN II-XII grossly intact. Gait normal. Patient is afebrile, calm, and alert. Steroids improved symptoms. Likely chronic pharyngitis/nasosinusitis likely related to pro-inflammatory state as evidenced by rosacea; can also be worsened by environmental factors such as his work areas. Patient has seen ENT and was told he has thickened swelling in those areas. [employer] given. Limitations: no limitations Related Data Previous Rx's ?Medication ?Instructions ?Recorded methylprednisolone 4 mg tablets in 4 mg PO QDAY #21 tabs 12/07/24 a dose pack (Medrol (Miky)) prednisone 50 mg tablet 50 mg PO QDAY #7 tabs 12/14/24 Allergies Allergy/AdvReac Type Severity Reaction Status Date / Time No Known Allergies Allergy Verified 12/31/24 02:07 Review of Systems Review of Systems Systems Reviewed: All systems reviewed, normal except as documented Constitutional Constitutional: Reports system reviewed and no additional complaints, except as documented, Denies fever(s) and Denies headache(s) ENT Ears, Nose, Mouth, and Throat: Reports as per HPI, Denies disequilibrium, Denies headache(s) and Reports throat swelling Cardiovascular Cardiovascular: Reports system reviewed and no additional complaints, except as documented, Denies chest pain and Denies dyspnea Respiratory Respiratory: Reports system reviewed and no additional complaints, except as documented, Denies cough and Denies dyspnea Gastrointestinal Gastrointestinal: Reports system reviewed and no additional complaints, except as documented, Denies abdominal pain, Denies nausea and Denies vomiting Neurologic Neurologic: Reports system reviewed and no additional complaints, except as documented, Denies confusion, Denies disequilibrium and Denies headache(s) Psychiatric Psychiatric: Denies confusion Allergic/Immunologic Allergic/Immunologic: Reports throat swelling Past Medical History Past Medical History CARDIAC: Negative Cardiac Disorders or Congestive Heart Failure RESPIRATORY: Negative Chronic Obstructive Pulmonary Disease (COPD) or Asthma GENITOURINARY: Negative Renal Disease ENDOCRINE: Negative Diabetes Mellitus Type 1 or Diabetes Mellitus Type 2 HEMATOLOGIC: Negative Sickle Cell Disease OTHER HISTORY: Negative Organ Transplant Surgical History SURGICAL: Negative Organ Transplant Social History SMOKING STATUS: Never smoker ED Exam General Limitations: Present no limitations General appearance: Present alert and in no apparent distress Head Head exam: Present atraumatic Eye Eye exam: Present normal appearance, PERRL and EOMI ENT ENT exam: Present mucous membranes moist Expanded ENT Exam Throat exam: Present tonsillomegaly (mild); Absent tonsillar erythema, tonsillar exudate, R peritonsillar mass, L peritonsillar mass or muffled voice Neck Neck exam: Present normal inspection, full ROM and trachea midline Chest Chest inspection: Present normal inspection and symmetric chest wall rise Respiratory Respiratory exam: Present normal lung sounds bilaterally Cardiovascular Cardiovascular exam: Present regular rate, normal rhythm and normal heart sounds Abdominal Exam Abdominal exam: Present soft and normal bowel sounds Extremities Exam Extremities exam: Present normal inspection and full ROM Back Exam Back exam: Present normal inspection and full ROM Neurological Exam Neurological exam: Present alert, oriented X3 and CN II-XII intact Psychiatric Psychiatric exam: Present normal affect and normal mood Skin Skin exam: Present warm, dry, intact and normal color Course Quality Measures none Orders Category Date Time Status dexAMETHasone TAB [Decadron Tab] Med 12/31/24 02:15 Discontinued 10 mg PO X1 ONE Vital Signs Vital signs: Vital Signs Temperature 98.2 F 12/31/24 01:35 Pulse Rate 84 12/31/24 01:35 Respiratory Rate 18 12/31/24 01:35 Blood Pressure 148/92 H 12/31/24 01:35 Pulse Oximetry (%) 97 12/31/24 01:35 Oxygen Delivery Method Room Air 12/31/24 01:35 O2 at 97% on RA and WNLs Upper Respiratory Infection MDM Narrative MDM Narrative:: 39M with history of rosacea presents to ED for 2 days of throat swelling that is worse at night. This has been happening intermittently for the past few years, but worse recently. Patient also works underground doing construction. Patient has pending ENT referral and was here multiples times recently for this. [address] of neck, which just showed mild tonsillitis. Patient was discharged with steroids and ABX, and patient states steroids were effective, but ABX were not. Physical exam reveals mildly swollen oropharynx. Patient is afebrile, calm, and alert. Likely chronic pharyngitis/nasosinusitis likely related to pro-inflammatory state as evidenced by rosacea; can also be worsened by environmental factors such as his work areas. Meds and career guidance counselor given. Patient data External records reviewed:: [facility] previous records Clinical information provided by:: patient Social determinants that could affect healthcare access:: none Patient has the following chronic illnesses:: rosacea How is presenting disease/condition affected by chronic disease/condition?: exacerbated by Evaluation data The following diagnostics were reviewed and interpreted by me:: other (specify) (none) Lab and/or radiology exams considered but not ordered:: not ordered Interpretation Summary: n/a Medications / Prescriptions Medications or Prescriptions considered but not ordered:: ordered Medication administrations:: Medication Administration History Discontinued Medications Dexamethasone (Dexamethasone 4 Mg Tablet) 10 mg PO X1 ONE Stop: 12/31/24 02:16 Last Admin: 12/31/24 02:18 Dose: 10 mg Documented By: JE above Consultations Consultation(s) initiated? (list below): No Diagnosis Upper Respiratory Differential Diagnosis: upper respiratory infection, croup, otitis media, sinusitis, viral infection, bronchitis, influenza, pharyngitis and other (chronic tonsillitis and adenoiditis) Most likely diagnosis given after review of the tests above:: chronic tonsillitis and adenoiditis Admission Indicated Admission indicated?: not indicated Admission Request Was there a request for admission?: No Disposition Plan Disposition Plan: Discharge Discharge Attestation Discharge Attestation: The patient and all family members were given an opportunity to ask questions and understood the discharge instructions. Discharge instructions specifically effects, indications for sooner follow up or return to the emergency department, and the expected course of current diagnosis. Patient condition: Stable Discharge Plan Plan Patient Disposition: HOME (Self Care) Disposition Comment: Stable Prescriptions/Referrals Prescriptions/Med Rec: No Action methylprednisolone [Medrol (Miky)] 4 mg tablets,dose pack 4 mg PO QDAY Qty: 21 0RF prednisone 50 mg tablet 50 mg PO QDAY Qty: 7 0RF Problem List Clinical Impression: Chronic tonsillitis and adenoiditis Patient/Caregiver Discharge Instructions Discharge Activity: activity as tolerated Education Materials: Tonsillitis in Adults Additional Instructions: Please follow-up with PCP within 24-48 hours and return immediately if symptoms worsen. Continue following-up with PCP about possible referrals to ENT, rheumatology, and sleep medicine. Print Language: Ukrainian Stand Alone Forms: Patient Portal Info Letter PA/[employer]PERVIS[employer] Supervising Physician PA/SUPER[employer] Supervising Physician: Dr. Marin
== END 2024-12-31 02:20 | disposition home or self-care (01) ==
LOC: SERX 03:42
PROVIDERS: Emergency Provider Emergency Medicine; PCP Family Medicine
DX: J35.03 Chronic tonsillitis and adenoiditis (principal)
CPT/HCPCS: 99282; J8540

== ENCOUNTER 2025-01-05 23:28 | Emergency (ER) | payer OTHER, SELFPAY ==
[2025-01-05 23:28] VITALS: BMI 31.9
[2025-01-06 00:20] VITALS: BP 145/84; PULSE 73; RESP 18; TEMP 36.8; O2SAT 95
--- NOTE | 2025-01-06 00:44 | PD.EDURI ---
Upper Respiratory Inf. RME/HPI General Chief Complaint: Dental/Oral/Throat Stated Complaint: TONSILS SWOLLEN Time Seen by Provider: 01/06/25 00:39 Arrival date/time: 01/05/25 23:28 39M with history of rosacea presents to ED for 2 days of throat swelling that is worse at night. This has been happening intermittently for the past few years, but worse recently. Patient also works underground doing construction. Patient has pending ENT referral and was here multiples times recently for this. [address] of neck, which just showed mild tonsillitis. Patient was discharged with steroids and ABX, and patient states steroids were effective, but ABX were not. Limitations: no limitations Related Data Previous Rx's ?Medication ?Instructions ?Recorded methylprednisolone 4 mg tablets in 4 mg PO QDAY #21 tabs 12/07/24 a dose pack (Medrol (Miky)) prednisone 50 mg tablet 50 mg PO QDAY #7 tabs 12/14/24 Allergies Allergy/AdvReac Type Severity Reaction Status Date / Time No Known Allergies Allergy Verified 12/31/24 02:07 Review of Systems Review of Systems Systems Reviewed: All systems reviewed, normal except as documented Constitutional Constitutional: Reports system reviewed and no additional complaints, except as documented, Denies fever(s) and Denies headache(s) ENT Ears, Nose, Mouth, and Throat: Reports as per HPI, Denies disequilibrium, Denies headache(s) and Reports throat swelling Cardiovascular Cardiovascular: Reports system reviewed and no additional complaints, except as documented, Denies chest pain and Denies dyspnea Respiratory Respiratory: Reports system reviewed and no additional complaints, except as documented, Denies cough and Denies dyspnea Gastrointestinal Gastrointestinal: Reports system reviewed and no additional complaints, except as documented, Denies abdominal pain, Denies nausea and Denies vomiting Neurologic Neurologic: Reports system reviewed and no additional complaints, except as documented, Denies confusion, Denies disequilibrium and Denies headache(s) Psychiatric Psychiatric: Denies confusion Allergic/Immunologic Allergic/Immunologic: Reports throat swelling Past Medical History Past Medical History CARDIAC: Negative Cardiac Disorders or Congestive Heart Failure RESPIRATORY: Negative Chronic Obstructive Pulmonary Disease (COPD) or Asthma GENITOURINARY: Negative Renal Disease ENDOCRINE: Negative Diabetes Mellitus Type 1 or Diabetes Mellitus Type 2 HEMATOLOGIC: Negative Sickle Cell Disease OTHER HISTORY: Negative Organ Transplant Surgical History SURGICAL: Negative Organ Transplant Social History SMOKING STATUS: Never smoker ED Exam General Limitations: Present no limitations General appearance: Present alert and in no apparent distress Head Head exam: Present atraumatic Eye Eye exam: Present normal appearance, PERRL and EOMI ENT ENT exam: Present mucous membranes moist Expanded ENT Exam Throat exam: Present tonsillomegaly; Absent tonsillar erythema, tonsillar exudate, R peritonsillar mass, L peritonsillar mass or muffled voice Neck Neck exam: Present normal inspection, full ROM and trachea midline Chest Chest inspection: Present normal inspection and symmetric chest wall rise Respiratory Respiratory exam: Present normal lung sounds bilaterally Cardiovascular Cardiovascular exam: Present regular rate, normal rhythm and normal heart sounds Abdominal Exam Abdominal exam: Present soft and normal bowel sounds Extremities Exam Extremities exam: Present normal inspection and full ROM Back Exam Back exam: Present normal inspection and full ROM Neurological Exam Neurological exam: Present alert, oriented X3 and CN II-XII intact Psychiatric Psychiatric exam: Present normal affect and normal mood Skin Skin exam: Present warm, dry, intact and normal color Course Quality Measures none Orders Category Date Time Status predniSONE Med 01/06/25 00:40 Discontinued 60 mg PO X1 ONE Vital Signs Vital signs: Vital Signs Temperature 98.3 F 01/06/25 00:20 Pulse Rate 73 01/06/25 00:20 Respiratory Rate 18 01/06/25 00:20 Blood Pressure 145/84 H 01/06/25 00:20 Pulse Oximetry (%) 95 01/06/25 00:20 Oxygen Delivery Method Room Air 01/06/25 00:20 O2 at 95% on RA and WNLs Upper Respiratory Infection MDM Narrative MDM Narrative:: 39M with history of rosacea presents to ED for 2 days of throat swelling that is worse at night. This has been happening intermittently for the past few years, but worse recently. Patient also works underground doing construction. Patient has pending ENT referral and was here multiples times recently for this. [address] of neck, which just showed mild tonsillitis. Patient was discharged with steroids and ABX, and patient states steroids were effective, but ABX were not. Physical exam reveals mildly swollen oropharynx. Patient is afebrile, calm, and alert. Likely chronic pharyngitis/nasosinusitis likely related to pro-inflammatory state as evidenced by rosacea; can also be worsened by environmental factors such as his work areas. Meds and memorial counselor given. Patient data External records reviewed:: [facility] previous records Clinical information provided by:: patient Social determinants that could affect healthcare access:: none Patient has the following chronic illnesses:: rosacea How is presenting disease/condition affected by chronic disease/condition?: exacerbated by Evaluation data The following diagnostics were reviewed and interpreted by me:: other (specify) (none) Lab and/or radiology exams considered but not ordered:: not ordered Interpretation Summary: n/a Medications / Prescriptions Medications or Prescriptions considered but not ordered:: ordered Medication administrations:: Medication Administration History Discontinued Medications Prednisone (Prednisone 20 Mg Tablet) 60 mg PO X1 ONE Stop: 01/06/25 00:41 above Consultations Consultation(s) initiated? (list below): No Diagnosis Upper Respiratory Differential Diagnosis: upper respiratory infection, croup, otitis media, sinusitis, viral infection, bronchitis, influenza, pharyngitis and other (chronic tonsillitis) Most likely diagnosis given after review of the tests above:: chronic tonsillitis Admission Indicated Admission indicated?: not indicated Admission Request Was there a request for admission?: No Disposition Plan Disposition Plan: Discharge Discharge Attestation Discharge Attestation: The patient and all family members were given an opportunity to ask questions and understood the discharge instructions. Discharge instructions specifically effects, indications for sooner follow up or return to the emergency department, and the expected course of current diagnosis. Patient condition: Stable Discharge Plan Plan Patient Disposition: HOME (Self Care) Discharge Disposition comment: Stable Prescriptions/Referrals Prescriptions/Med Rec: No Action methylprednisolone [Medrol (Miky)] 4 mg tablets,dose pack 4 mg PO QDAY Qty: 21 0RF prednisone 50 mg tablet 50 mg PO QDAY Qty: 7 0RF Problem List Clinical Impression: Chronic tonsillitis and adenoiditis Patient/Caregiver Discharge Instructions Education Materials: Tonsillitis in Adults Additional Instructions: Please follow-up with PCP within 24-48 hours and return immediately if symptoms worsen. Besides, ENT, consider seeing a medicinal chemist. Print Language: Nicaraguan Stand Alone Forms: Patient Portal Info Letter FREYA/ARVIN Supervising Physician FREYA/ARVIN Supervising Physician: Dr. Day
[2025-01-06] MEDS: predniSONE 20 MG TABLET 60 MG PO (00:55)
== END 2025-01-06 01:00 | disposition home or self-care (01) ==
LOC: SERX 01-06 01:09
PROVIDERS: Emergency Provider Emergency Medicine; PCP Family Medicine
DX: J35.03 Chronic tonsillitis and adenoiditis (principal)
CPT/HCPCS: 99282; J7512

== ENCOUNTER 2025-01-08 01:06 | Emergency (ER) | payer OTHER, SELFPAY ==
[2025-01-08 01:09] VITALS: BMI 31.9
[2025-01-08 01:31] VITALS: BP 149/99; PULSE 73; RESP 18; TEMP 36.8; O2SAT 98
--- NOTE | 2025-01-08 02:04 | PD.EDDENTL ---
ED Dental RME/HPI General Chief complaint: Dental/Oral/Throat Stated complaint: throat swelling without pain Time Seen by Provider: 01/08/25 02:02 Arrival date/time: 01/08/25 01:[id number] male presents to emergency department with a complaint of painful swollen tonsils that have become chronic and is presently waiting for an ENT consult. Mode of arrival: ambulatory Limitations: no limitations RME / HPI Onset (ago): month(s) Duration: constant Severity: moderate Severity scale (1-10): 7 Related Data Previous Rx's ?Medication ?Instructions ?Recorded methylprednisolone 4 mg tablets in 4 mg PO QDAY #21 tabs 12/07/24 a dose pack (Medrol (Miky)) prednisone 50 mg tablet 50 mg PO QDAY #7 tabs 12/14/24 Allergies Allergy/AdvReac Type Severity Reaction Status Date / Time No Known Allergies Allergy Verified 01/08/25 01:13 Review of Systems Constitutional Constitutional: Reports system reviewed and no additional complaints, except as documented Eyes Eyes: Reports system reviewed and no additional complaints, except as documented, Denies dry eyes, Denies exophthalmos and Reports floaters Cardiovascular Cardiovascular: Denies chest pain with activity and Denies claudication Past Medical History Past Medical History Comments PMH COMMENT: Past medical history includes tonsils and tonsillitis. ED Exam General Limitations: Present no limitations General appearance: Present alert and in no apparent distress Head Head exam: Present atraumatic Eye Eye exam: Present normal appearance, PERRL and EOMI ENT ENT exam: Present normal exam, mucous membranes moist and other (Tonsils are enlarged and edematous. They do not obstruct the airway. Patient is not tripoding.) Neck Neck exam: Present normal inspection, full ROM and trachea midline Chest Chest inspection: Present normal inspection and symmetric chest wall rise Respiratory Respiratory exam: Present normal lung sounds bilaterally Cardiovascular Cardiovascular exam: Present regular rate, normal rhythm and normal heart sounds Abdominal Exam Abdominal exam: Present soft and normal bowel sounds Extremities Exam Extremities exam: Present normal inspection and full ROM Back Exam Back exam: Present normal inspection and full ROM Neurological Exam Neurological exam: Present alert, oriented X3 and CN II-XII intact Psychiatric Psychiatric exam: Present normal affect and normal mood Skin Skin exam: Present warm, dry, intact and normal color Course Course Course Narrative: Patient will have 10 mg of dexamethasone IM. He is to primary care physician for his consult and referral as discussed Quality Measures none Orders N/A Vital Signs Vital signs: Vital Signs Temperature 98.2 F 01/08/25 01:31 Pulse Rate 73 01/08/25 01:31 Respiratory Rate 18 01/08/25 01:31 Blood Pressure 149/99 H 01/08/25 01:31 Pulse Oximetry (%) 98 01/08/25 01:31 Oxygen Delivery Method Room Air 01/08/25 01:31 O2 room air 98% Dental / Oral MDM Narrative MDM Narrative:: Patient will be discharged in no apparent distress after receiving 10 mg of dexamethasone. He has to follow-up as discussed with primary care for referral to ENT. Patient data External records reviewed:: Other (specify) Clinical information provided by:: patient Social determinants that could affect healthcare access:: none Patient has the following chronic illnesses:: Tonsillitis How is presenting disease/condition affected by chronic disease/condition?: caused by (Unknown) Evaluation data The following diagnostics were reviewed and interpreted by me:: other (specify) Lab and/or radiology exams considered but not ordered:: N/A Interpretation Summary: Tonsillitis Medications / Prescriptions Medications or Prescriptions considered but not ordered:: N/A Medication administrations:: N/A Consultations Consultation(s) initiated? (list below): No Diagnosis Dental Differential Diagnosis: dental caries, dental abscess and other (Tonsillitis) Most likely diagnosis given after review of the tests above:: Tonsillitis Admission Indicated Admission indicated?: not indicated Admission Request Was there a request for admission?: No Disposition Plan Disposition Plan: Discharge Discharge Attestation Discharge Attestation: The patient and all family members were given an opportunity to ask questions and understood the discharge instructions. Discharge instructions specifically effects, indications for sooner follow up or return to the emergency department, and the expected course of current diagnosis. Patient condition: Stable Discharge Plan Plan Patient Disposition: HOME (Self Care) Discharge Disposition comment: Discharge to home in no apparent distress Patient condition on transfer: Stable Prescriptions/Referrals Prescriptions/Med Rec: No Action methylprednisolone [Medrol (Miky)] 4 mg tablets,dose pack 4 mg PO QDAY Qty: 21 0RF prednisone 50 mg tablet 50 mg PO QDAY Qty: 7 0RF Referrals: Sukhjinder Freire DO [Primary Care Provider] - In 1 week Problem List Clinical Impression: Chronic tonsillitis Patient/Caregiver Discharge Instructions Education Materials: Tonsillitis in Adults Print Language: Nicaraguan 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
[2025-01-08] MEDS: DEXAMETHASONE SOD PHOS INJ 10 MG/ML VIAL IM (04:23)
== END 2025-01-08 04:25 | disposition home or self-care (01) ==
PROVIDERS: Emergency Provider Emergency Medicine; PCP Family Medicine
DX: J35.01 Chronic tonsillitis (principal)
CPT/HCPCS: 96372; 99283; J1100

== ENCOUNTER → 2025-01-08 | Outpatient (CLI) | payer OTHER, SELFPAY ==
[2025-01-18 07:31] LABS: DHEA Sulfate* 195 mcg/dL (70-495); Estrogen, Total, Serum* 189 pg/mL (< OR = 404); Testosterone, Free,Dialysis 324.1 pg/mL (35.0-155.0); Testosterone, Total, Dialysis 1162 ng/dL (250-1100)
== END | disposition home or self-care (01) ==
LOC: COPL 15:49
PROVIDERS: PCP Family Medicine; Referring Provider Family Medicine; Visit Provider Family Medicine
DX: E29.1 Testicular hypofunction (principal)
CPT/HCPCS: 36415; 82627; 82672; 84402; 84403

== ENCOUNTER 2025-02-26 07:08 | Emergency (ER) | payer OTHER, SELFPAY ==
[2025-02-26 07:21] VITALS: BP 156/102; PULSE 75; RESP 18; TEMP 36.8; O2SAT 95; BMI 32.6
[2025-02-26] MEDS: DEXAMETHASONE SOD PHOS INJ 10 MG/ML VIAL PO (07:45)
--- NOTE | 2025-02-26 07:50 | EDNOTE_ITS ---
ED Dental RME/HPI General Chief complaint: Dental/Oral/Throat Stated complaint: Swollen tonsils, SOB X 4 months Time Seen by Provider: 02/26/25 07:37 Source: patient Arrival date/time: 02/26/25 07:08 39-year-old male with no known medical history presents to the emergency room with a chief complaint of enlarged tonsils, shortness of breath x 4 months. Mode of arrival: ambulatory Limitations: no limitations Related Data Previous Rx's ?Medication ?Instructions ?Recorded methylprednisolone 4 mg tablets in 4 mg PO QDAY #21 ta bs 12/07/24 a dose pack (Medrol (Miky)) prednisone 50 mg tablet 50 mg PO QDAY #7 tabs Allergies Allergy/AdvReac Type Severity Reaction Status Date / Time No Known Allergies Allergy Verified 02/26/25 07:13 Review of Systems Review of Systems Systems Reviewed: All systems reviewed, normal except as documented Constitutional Constitutional: Reports system reviewed and no additional complaints, except as documented, Denies fatigue, Denies fever(s), Denies headache(s) and Denies weakness Eyes Eyes: Reports system reviewed and no additional complaints, except as documented, Denies blurry vision and Denies change in vision ENT Ears, Nose, Mouth, and Throat: Reports system reviewed and no additional complaints, except as documented, Reports dysphagia, Denies otalgia, Denies headache(s), Denies nasal congestion, Reports odynophagia, Reports sore throat, Denies throat swelling and Denies vertigo Cardiovascular Cardiovascular: Reports system reviewed and no additional complaints, except as documented, Denies chest pain, Denies dyspnea and Denies dyspnea on exertion Respiratory Respiratory: Reports system reviewed and no additional complaints, except as documented, Denies chest congestion, Denies cough, Denies dyspnea, Denies dyspnea on exertion and Denies wheezing Gastrointestinal Gastrointestinal: Reports system reviewed and no additional complaints, except as documented, Denies abdominal pain, Denies cramping, Reports dysphagia, Denies nausea, Reports odynophagia and Denies vomiting Genitourinary Genitourinary: Reports system reviewed and no additional complaints, except as documented, Denies dysuria and Denies hematuria Musculoskeletal Musculoskeletal: Reports system reviewed and no additional complaints, except as documented and Denies back pain Integumentary/Breasts Skin/Breast: Reports system reviewed and no additional complaints, except as documented and Denies wounds Neurologic Neurologic: Reports system reviewed and no additional complaints, except as documented, Denies confusion, Denies headache(s), Denies lack of coordination, Denies vertigo and Denies weakness Psychiatric Psychiatric: Reports system reviewed and no additional complaints, except as documented, Denies anxiety, Denies confusion, Denies depression, Denies paranoia, Denies suicidal ideation and Denies tactile hallucinations Endocrine Endocrine: Reports system reviewed and no additional complaints, except as documented and Denies fatigue Hematologic/Lymphatic Hematologic/Lymphatic: Reports system reviewed and no additional complaints, except as documented and Denies lymphadenopathy Allergic/Immunologic Allergic/Immunologic: Reports system reviewed and no additional complaints, except as documented, Denies throat swelling, Denies urticaria and Denies wheezing Past Medical History Past Medical History CARDIAC: Negative Cardiac Disorders or Congestive Heart Failure RESPIRATORY: Negative Chronic Obstructive Pulmonary Disease (COPD) or Asthma GENITOURINARY: Negative Renal Disease ENDOCRINE: Negative Diabetes Mellitus Type 1 or Diabetes Mellitus Type 2 HEMATOLOGIC: Negative Sickle Cell Disease OTHER HISTORY: Negative Organ Transplant Surgical History SURGICAL: Negative Organ Transplant Social History SMOKING STATUS: Former smoker ED Exam General Limitations: Present no limitations General appearance: Present alert and in no apparent distress Head Head exam: Present atraumatic Eye Eye exam: Present normal appearance, PERRL and EOMI ENT ENT exam: Present normal exam, normal oropharynx and mucous membranes moist Expanded ENT Exam Mouth exam: Present tongue normal; Absent drooling, trismus, lip swelling or tongue swelling Throat exam: Present tonsillomegaly; Absent tonsillar erythema, tonsillar exudate, R peritonsillar mass, L peritonsillar mass or muffled voice Neck Neck exam: Present normal inspection, full ROM and trachea midline Chest Chest inspection: Present normal inspection and symmetric chest wall rise Respiratory Respiratory exam: Present normal lung sounds bilaterally Cardiovascular Cardiovascular exam: Present regular rate, normal rhythm and normal heart sounds Abdominal Exam Abdominal exam: Present soft and normal bowel sounds Extremities Exam Extremities exam: Present normal inspection and full ROM Back Exam Back exam: Present normal inspection and full ROM Neurological Exam Neurological exam: Present alert, oriented X3 and CN II-XII intact Psychiatric Psychiatric exam: Present normal affect and normal mood Skin Skin exam: Present warm, dry, intact and normal color Course Quality Measures none Orders Category Date Time Status Dexamethasone Inj [Decadron Inj] Med 02/26/25 07:37 Discontinued 10 mg PO X1 ONE Vital Signs Vital signs: Vital Signs Temperature 98.2 F 02/26/25 07:21 Pulse Rate 75 02/26/25 07:21 Respiratory Rate 18 02/26/25 07:21 Blood Pressure 156/102 H 02/26/25 07:21 Pulse Oximetry (%) 95 02/26/25 07:21 Oxygen Delivery Method Room Air 02/26/25 07:21 O2 saturation 95% within normal limits Dental / Oral MDM Narrative MDM Narrative:: 39-year-old male with no known medical history presents to the emergency room with a chief complaint of enlarged tonsils, shortness of breath x 4 months. Patient is hemodynamically stable. O2 saturation is 95% on room air Physical examination shows a normal posterior pharynx. There is bilateral tonsillar swelling. There is no exudates there is no trismus there is no lip swelling tongue swelling or difficulty breathing. Lung sounds are clear bilaterally. Patient states he was seen at his ENT office yesterday and had a CT of his soft tissue neck. Patient states he has an appointment with his ENT this Saturday for the results of his neck and states they were talking about possibly removing his tonsils. At this time the patient does not have any difficulty breathing there is no exudates in the posterior pharynx patient has no fevers no tachycardia. Patient was discharged and educated to follow-up with primary care provider in the next 24 to 48 hours and return to the emergency room for any evidence of worsening signs or symptoms Patient data External records reviewed:: [facility] previous records Clinical information provided by:: patient Social determinants that could affect healthcare access:: none Patient has the following chronic illnesses:: No chronic illness How is presenting disease/condition affected by chronic disease/condition?: no chronic disease Evaluation data The following diagnostics were reviewed and interpreted by me:: lab results and radiology exam(s) Lab and/or radiology exams considered but not ordered:: Labs and radiology exams considered in order Interpretation Summary: N/A Medications / Prescriptions Medications or Prescriptions considered but not ordered:: Medication given Medication administrations:: Medication Administration History Discontinued Medications Dexamethasone Sodium Phosphate (Dexamethasone Sod Phos Inj 10 Mg/Ml Vial) 10 mg PO X1 ONE Stop: 02/26/25 07:38 Last Admin: 02/26/25 07:45 Dose: 10 mg Documented By: JENNIFER Comments: given PO Medication given Consultations Consultation(s) initiated? (list below): No Diagnosis Dental Differential Diagnosis: other (Tonsillomegaly/pharyngitis/peritonsillar abscess) Most likely diagnosis given after review of the tests above:: Tonsillomegaly Admission Indicated Admission indicated?: not indicated Admission Request Was there a request for admission?: No Disposition Plan Disposition Plan: Discharge Discharge Attestation Discharge Attestation: The patient and all family members were given an opportunity to ask questions and understood the discharge instructions. Discharge instructions specifically effects, indications for sooner follow up or return to the emergency department, and the expected course of current diagnosis. Patient condition: Stable Discharge Plan Plan Patient Disposition: HOME (Self Care) Discharge Disposition comment: Stable Prescriptions/Referrals Prescriptions/Med Rec: No Action methylprednisolone [Medrol (Miky)] 4 mg tablets,dose pack 4 mg PO QDAY Qty: 21 0RF prednisone 50 mg tablet 50 mg PO QDAY Qty: 7 0RF Problem List Clinical Impression: Enlargement of tonsils Patient/Caregiver Discharge Instructions Education Materials: Preventing Common Respiratory ... Additional Instructions: Please follow-up with the results of your CT of your neck with your ENT specialist this Saturday. Medication was given to you here in the emergency room to help decrease the swelling. For any evidence of worsening signs or symptoms return to the emergency room immediately Print Language: Faroese Stand Alone Forms: Tashia Award Info., Patient Portal Info Letter PA/ARVIN Supervising Physician FREYA/ARVIN Supervising Physician: Dr. Wilson
== END 2025-02-26 07:55 | disposition home or self-care (01) ==
PROVIDERS: Emergency Provider Emergency Medicine; PCP Family Medicine
DX: J35.1 Hypertrophy of tonsils (principal); Z87.891 Personal history of nicotine dependence
CPT/HCPCS: 99282; J1100

== ENCOUNTER 2025-07-30 19:27 | Emergency (ER) | payer OTHER, SELFPAY ==
[2025-07-30 19:29] VITALS: BMI 32.6
[2025-07-30 20:06] VITALS: BP 149/95; PULSE 103; RESP 18; TEMP 37.3; O2SAT 95
--- NOTE | 2025-07-30 20:13 | PD.EDURI ---
Upper Respiratory Inf. RME/HPI General Chief Complaint: Dental/Oral/Throat Stated Complaint: SORE THROAT Time Seen by Provider: 07/30/25 19:33 Arrival date/time: 07/30/25 19:27 39M with history of rosacea presents to ED for 2 days of sore throat. This has been happening intermittently for the past few years, but worse recently. Patient also works underground doing construction. Patient had recent sinus surgery with ENT with minimal improvement. Patient has pending tonsil removal. Patient already has steroids. Limitations: no limitations Related Data Previous Rx's ?Medication ?Instructions ?Recorded methylprednisolone 4 mg tablets in 4 mg PO QDAY #21 tabs 12/07/24 a dose pack (Medrol (Miky)) prednisone 50 mg tablet 50 mg PO QDAY #7 tabs 12/14/24 Allergies Allergy/AdvReac Type Severity Reaction Status Date / Time No Known Allergies Allergy Verified 07/30/25 19:28 Review of Systems Review of Systems Systems Reviewed: All systems reviewed, normal except as documented ENT Ears, Nose, Mouth, and Throat: Reports as per HPI and Reports sore throat Past Medical History Past Medical History CARDIAC: Negative Cardiac Disorders or Congestive Heart Failure RESPIRATORY: Negative Chronic Obstructive Pulmonary Disease (COPD) or Asthma GENITOURINARY: Negative Renal Disease ENDOCRINE: Negative Diabetes Mellitus Type 1 or Diabetes Mellitus Type 2 HEMATOLOGIC: Negative Sickle Cell Disease OTHER HISTORY: Negative Organ Transplant Surgical History SURGICAL: Negative Organ Transplant Social History SMOKING STATUS: Never smoker ED Exam General Limitations: Present no limitations General appearance: Present alert and in no apparent distress Head Head exam: Present atraumatic ENT ENT exam: Present mucous membranes moist Expanded ENT Exam Throat exam: Present tonsillar erythema and tonsillomegaly; Absent tonsillar exudate, R peritonsillar mass, L peritonsillar mass or muffled voice Neck Neck exam: Present normal inspection, full ROM and trachea midline Chest Chest inspection: Present normal inspection and symmetric chest wall rise Neurological Exam Neurological exam: Present alert and oriented X3 Psychiatric Psychiatric exam: Present normal affect and normal mood Skin Skin exam: Present warm, dry, intact and normal color Course Quality Measures none Orders Category Date Time Status Strep A Rapid Stat Lab 07/30/25 20:16 Completed Vital Signs Vital signs: Vital Signs Temperature 99.1 F 07/30/25 20:06 Pulse Rate 103 H 07/30/25 20:06 Respiratory Rate 18 07/30/25 20:06 Blood Pressure 149/95 H 07/30/25 20:06 Pulse Oximetry (%) 95 07/30/25 20:06 Oxygen Delivery Method Room Air 07/30/25 20:06 O2 at 95% on RA and WNLs Upper Respiratory Infection MDM Narrative MDM Narrative:: 39M with history of rosacea presents to ED for 2 days of sore throat. This has been happening intermittently for the past few years, but worse recently. Patient also works underground doing construction. Patient had recent sinus surgery with ENT with minimal improvement. Patient has pending tonsil removal. Patient already has steroids. Physical exam reveals red and swollen oropharynx. Patient is afebrile, calm, and alert. Strep neg. Likely viral and/or chronic pharyngitis/nasosinusitis likely related to pro-inflammatory state as evidenced by rosacea; can also be worsened by environmental factors such as his work areas. Meds and equal opportunity counselor given. Patient data External records reviewed:: [facility] previous records Clinical information provided by:: patient Social determinants that could affect healthcare access:: none Patient has the following chronic illnesses:: none How is presenting disease/condition affected by chronic disease/condition?: no chronic disease Evaluation data The following diagnostics were reviewed and interpreted by me:: lab results Lab and/or radiology exams considered but not ordered:: ordered Interpretation Summary: above Medications / Prescriptions Medications or Prescriptions considered but not ordered:: not ordered Medication administrations:: n/a Consultations Consultation(s) initiated? (list below): No Diagnosis Upper Respiratory Differential Diagnosis: upper respiratory infection, croup, otitis media, sinusitis, viral infection, bronchitis, influenza and pharyngitis Most likely diagnosis given after review of the tests above:: pharyngitis Admission Indicated Admission indicated?: not indicated Admission Request Was there a request for admission?: No Disposition Plan Disposition Plan: Discharge Discharge Attestation Discharge Attestation: The patient and all family members were given an opportunity to ask questions and understood the discharge instructions. Discharge instructions specifically effects, indications for sooner follow up or return to the emergency department, and the expected course of current diagnosis. Patient condition: Stable Discharge Plan Plan Patient Disposition: HOME (Self Care) Discharge Disposition comment: Stable Prescriptions/Referrals Prescriptions/Med Rec: No Action methylprednisolone [Medrol (Miky)] 4 mg tablets,dose pack 4 mg PO QDAY Qty: 21 0RF prednisone 50 mg tablet 50 mg PO QDAY Qty: 7 0RF Referrals: Sukhjinder Freire DO [Primary Care Provider, Family Practice] - In 1 week Problem List Clinical Impression: Pharyngitis Patient/Caregiver Discharge Instructions Education Materials: ED Pharyngitis, Viral Additional Instructions: Please follow-up with PCP within 24-48 hours and return immediately if symptoms worsen. Ibuprofen/Tylenol can be used simultaneously for greater fever/pain control. Benadryl is good for cough, congestion, and sleep. Print Language: Ukrainian Stand Alone Forms: Patient Portal Info Letter PA/SHELL SHOP SUPERVISOR Supervising Physician PA/SHELL SHOP SUPERVISOR Supervising Physician: Dr. Moore
[2025-07-30 21:22] LABS: Strep A Rapid Negative (Negative)
== END 2025-07-30 21:36 | disposition home or self-care (01) ==
PROVIDERS: Physician Assistant; Emergency Provider Emergency Medicine; PCP Family Medicine
DX: J02.9 Acute pharyngitis, unspecified (principal)
CPT/HCPCS: 87651; 99281